=== PATIENT | female | born 1930 | race Caucasian/White ===

== ENCOUNTER 2016-07-14 09:48 | Inpatient (IN) | payer MEDICARE, OTHER ==
[~2016-07-14 09:48] MED LIST: ANTIBIOTIC; ASPIR 8181 M1 PO; ASPIRIN325 MG PO; BACTRIM DS TAB1 EAC2 PO; CALCIUM CITRAT1 EAC5 PO; CALTRATE 600 W1 EACH PO; CARVEDILOL6.25 MG PO; COREG12.5 M1 PO; ELIQUIS2.5 M1 PO; IRON PO; LASIX20 M1 PO; LIPITOR20 M1 PO; NITROSTAT0.4 MG/TAB SL; OMEPRAZOLE20 M4 PO; OMEPRAZOLE20 MG PO; PACERONE200 M1 PO; POTASSIUM CHLO10 ME2 PO; PREDNISONE2.5 M1 PO; SIMVASTATIN20 MG PO; SPIRONOLACTONE25 MG PO; TRAMADOL HCL50 MG PO; TYLENOL EXTRA500 M1 PO; ULTRAM50 M1 PO; VESICARE5 MG PO
[2016-07-14 10:57] LABS: INR 1.1 INR (0.9-1.1); PROTHROMBIN TIME 12.9 SECONDS (9.0-13.6)
[2016-07-15 10:50] LABS: ANION GAP 11 mmol/L (0-20); BLOOD UREA NITROGEN 31 mg/dl (6-24); CALCIUM 8.4 mg/dl (8.5-10.5); CARBON DIOXIDE-VENOUS 27 mmol/L (22-32); CHLORIDE 104 mmol/l (96-110); CREATININE 1.35 mg/dl (0.50-1.10); GLUCOSE 133 mg/dL (70-110); POTASSIUM 4.1 mmol/L (3.7-5.1); SODIUM 138 mmol/L (135-145); eGFR VALUE FOR BLACK 41 mL/Min
== END 2016-07-16 12:45 | DRG 483 ==
LOC: SHSC 09:48 → ORE 12:09 → PACU 14:33 → 5EB 16:09
PROVIDERS: Hospitalist; ADMIT Orthopaedic Surgery
PROC: 0RRK00Z Replacement of Left Shoulder Joint with Reverse Ball and Socket Synthetic Substitute, Open Approach (ICD-10-PCS; principal; 2016-07-14)
DX: M75.102 Unspecified rotator cuff tear or rupture of left shoulder, not specified as traumatic (principal); I48.91 Unspecified atrial fibrillation; I35.0 Nonrheumatic aortic (valve) stenosis; I25.10 Atherosclerotic heart disease of native coronary artery without angina pectoris; Z79.01 Long term (current) use of anticoagulants; R11.0 Nausea; Z95.1 Presence of aortocoronary bypass graft; Z86.711 Personal history of pulmonary embolism; Z86.718 Personal history of other venous thrombosis and embolism
CPT/HCPCS: C1713; C1776; G8978-GP-CK; G8979-GP-CJ; J0171; J0690; J1885; J2270; J2795; J7512